=== PATIENT | female | born 1995 | race Caucasian/White ===

== ENCOUNTER 2017-11-02 12:50 | Emergency (ER) | payer OTHER ==
[2017-11-02 13:08] VITALS: BP 117/78; PULSE 79; RESP 18; TEMP 98.3
[2017-11-02] MEDS ORDERED: PROMETHAZINE 25 MG TAB PO STA (13:33)
--- NOTE | 2017-11-02 13:39 | ED ---
URI HPI - General Chief Complaint: Upper Respiratory Infection Stated Complaint: cough, fever Time Seen by Provider: 11/02/17 13:09 Source: patient Mode of arrival: ambulatory Limitations: no limitations - History of Present Illness Initial Comments: 22-year-old female patient presents to the emergency department stay for complaints of cough and fever. Patient states that her temperature has been upwards of 100.8F at home. Patient states that symptoms started Monday with postnasal drip and slight cough. States that she developed fever on Monday. States that she has a cough with clear sputum production. She denies any shortness of breath or wheezing. Denies any sore throat. Denies any recent travel or sick contacts. Patient denies any recent rash, shortness breath, chest pain, abdominal pain, nausea, vomiting, diarrhea, constipation, back pain , numbness, tingling, dizziness, weakness, hematuria, dysuria, urinary urgency, urinary frequency, headache, visual changes, or any other complaints. - Related Data Allergies Allergy/AdvReac Type Severity Reaction Status Date / Time No Known Allergies Allergy Verified 11/02/17 13:08 Review of Systems ROS Statement: Those systems with pertinent positive or pertinent negative responses have been documented in the HPI. ROS Other: All systems not noted in ROS Statement are negative. Past Medical History Past Medical History: No Reported History History of Any Multi-Drug Resistant Organisms: None Reported Past Surgical History: Adenoidectomy, Tonsillectomy Past Psychological History: No Psychological Hx Reported Smoking Status: Never smoker Past Alcohol Use History: None Reported Past Drug Use History: None Reported General Exam Limitations: no limitations General appearance: alert, in no apparent distress, other (This is a well- developed, well-nourished adult female patient in no acute distress. Vital signs upon presentation are temperature 98.3F, pulse 79, respirations 18, blood pressure 117/78, pulse ox 98% on room air.) Eye exam: Present: normal appearance, PERRL, EOMI. Absent: scleral icterus, conjunctival injection, periorbital swelling ENT exam: Present: normal exam, normal oropharynx, mucous membranes moist, TM's normal bilaterally Neck exam: Present: normal inspection. Absent: tenderness, meningismus, lymphadenopathy Respiratory exam: Present: normal lung sounds bilaterally. Absent: respiratory distress, wheezes, rales, rhonchi, stridor Cardiovascular Exam: Present: regular rate, normal rhythm, normal heart sounds. Absent: systolic murmur, diastolic murmur, rubs, gallop, clicks Neurological exam: Present: alert, oriented X3, CN II-XII intact Psychiatric exam: Present: normal affect, normal mood Skin exam: Present: warm, dry, intact, normal color. Absent: rash Course Vital Signs 11/02/17 13:04 Temperature 98.3 F Pulse Rate 79 Respiratory 18 Rate Blood Pressure 117/78 O2 Sat by Pulse 98 Oximetry Medical Decision Making - Medical Decision Making 22-year-old female patient presents the emergency department today for complaints of nasal congestion and drainage and cough. Physical examination was relatively unremarkable. Lungs are clear to auscultation with good air movement. Chest x-ray was reviewed and showed no acute cardiopulmonary process. Did discuss findings and results with the patient. We did discuss this is most likely viral in nature. We will give Phenergan cough syrup to assist with symptom relief. She is instructed to increase fluids. She is instructed to follow-up with her primary care physician for recheck in 1-2 days. Return parameters discussed in detail. She is discharged in stable condition. She verbalizes understanding and agrees with this plan. - Radiology Data Radiology results: report reviewed, image reviewed Two-view x-ray of the chest is obtained. There is no focal airspace opacity, pleural effusion, or pneumothorax seen. The cardiac silhouette size is within normal limits. The osseous structures are intact. Impression by Dr. Cevallos shows no acute cardiopulmonary process. Disposition Clinical Impression: Viral upper respiratory infection Disposition: HOME SELF-CARE Condition: Good Instructions: Upper Respiratory Infection (ED) Additional Instructions: Take medication as directed. This may make you tired so please don't take it if you're driving. Use [id number] nasal decongestants. Rest and increase fluids. Follow-up through primary care physician for recheck in 1-2 days. Return here immediately for any new, worsening, or concerning symptoms. Is patient prescribed a controlled substance at d/c from ED?: No Referrals: Eliecer Adams MD [Primary Care Provider] - 1-2 days Time of Disposition: 15:12
[2017-11-02] MEDS ORDERED: PROMETHAZINE 6.25MG/5ML 147.5 MG/118 ML BOTTLE PO STA (14:16)
--- NOTE | 2017-11-02 14:32 | XR ---
EXAMINATION TYPE: XR chest 2V DATE OF EXAM: 11/02/2017 COMPARISON: NONE HISTORY: Cough, congestion, and fever TECHNIQUE: Frontal and lateral views of the chest are obtained. FINDINGS: There is no focal air space opacity, pleural effusion, or pneumothorax seen. The cardiac silhouette size is within normal limits. The osseous structures are intact. IMPRESSION: No acute cardiopulmonary process.
== END 2017-11-02 15:18 | disposition home or self-care (01) ==
LOC: EC 12:50
DX: J06.9 Acute upper respiratory infection, unspecified (principal)
CPT/HCPCS: 71046; 99283